=== PATIENT | female | born 1950 | race Caucasian/White ===

== ENCOUNTER 2018-02-14 21:29 | Emergency (ER) | payer MEDICARE, BC ==
[~2018-02-14] VITALS: Ht 165.1 cm; Wt 99.8 kg
--- NOTE | 2018-02-14 22:07 | RAD ---
Chest, PA and Lateral: Technique: PA and lateral views of the chest were obtained. History: Shortness of breath. Comparison: None. Findings: The heart and pulmonary vasculature appear within normal limits. Minimal left infrahilar airspace opacities likely atelectasis or infiltrate.. The pleural margins are clear. Moderate degenerative changes thoracic spine. Impression: Minimal left infrahilar airspace opacities likely atelectasis or infiltrate. Electronically signed by: Abelino Garcia MD (02/14/2018 10:04 PM) [email or web address]
[2018-02-14 22:12] LABS: BASO % 1 % (0-3); EOS # 0.5 x10^3/uL (0.0-0.7); EOS % 9 % (0-3); HEMATOCRIT 43.1 % (36.0-47.0); LYMPH # 1.5 x10^3/uL (1.0-4.8); LYMPH % 26 % (24-48); MEAN CORPUSCULAR HEMOGLOBIN 33 pg (25-35); MEAN CORPUSCULAR HGB CONC 35 g/dL (31-37); MEAN CORPUSCULAR VOLUME 95 fL (79-100); MONO # 0.8 x10^3/uL (0.0-1.1); MONO % 14 % (0-9); NEUT # 2.9 x10^3uL (1.8-7.7); NEUT % 50 % (31-73); PLATELET COUNT 356 x10^3/uL (140-400); RED BLOOD COUNT 4.55 x10^6/uL (3.50-5.40); RED CELL DISTRIBUTION WIDTH 13.7 % (11.5-14.5); WHITE BLOOD COUNT 5.9 x10^3/uL (4.0-11.0)
[2018-02-14 22:21] LABS: CALCIUM 9.3 mg/dL (8.5-10.1); CREATININE 0.9 mg/dL (0.6-1.0); GFR 62.1; POTASSIUM 4.3 mmol/L (3.5-5.1); PROTHROMBIN TIME PATIENT 31.8 SEC (11.7-14.0)
[2018-02-14 22:26] LABS: ALBUMIN 3.7 g/dL (3.4-5.0); ALBUMIN/GLOBULIN RATIO 0.9 (1.0-1.7); TOTAL BILIRUBIN 0.4 mg/dL (0.2-1.0); TOTAL PROTEIN 7.6 g/dL (6.4-8.2)
[2018-02-14] MEDS ORDERED: IPRATRPIUM/ALBUTEROL 0.5/2.5MG 3 ML NEBU. NEB ONE (22:30)
[2018-02-14] MEDS ORDERED: predniSONE 20 MG TABLET PO ONE (22:30)
[2018-02-14 22:45] VITALS: BP 126/62
[2018-02-14] MEDS ORDERED: PRED50TA PO (23:06)
[2018-02-14] MEDS ORDERED: DOXY100C2 PO (23:06)
--- NOTE | 2018-02-15 06:27 | PHYS DOC ---
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 Symptoms improved prior to arriving in the ED. Patient seen by PCP and started on amoxicillin reports no improvement. No fever chills, nausea vomiting or sweats. No leg pain or swelling. No history of CAD, CHF, DVT or PE. No other acute symptoms or complaints. [] Review of Systems Review of Systems Review symptoms as per history of present illness. All other review symptoms are negative. All other systems were reviewed and found to be within normal limits, except as documented in this note. Current Medications Current Medications Current Medications Medications (Trade) Dose Ordered Sig/Ford Start Time Stop Time Status Last Admin Dose Admin Albuterol/ Ipratropium (Duoneb) 3 ml 1X ONCE 02/14/18 22:30 02/14/18 22:31 DC 02/14/18 22:30 3 ML Prednisone (Prednisone) 60 mg 1X ONCE 02/14/18 22:30 02/14/18 22:31 DC 02/14/18 22:51 60 MG Allergies Allergies Allergies Coded Allergies Type Severity Reaction Last Updated Verified Sulfa (Sulfonamide Antibiotics) Allergy Intermediate 02/14/18 Yes sulfamethoxazole Allergy Mild 02/14/18 Yes trimethoprim Allergy Mild 02/14/18 Yes Physical Exam Physical Exam Constitutional: Well developed, well nourished, no acute distress, non-toxic appearance. [] HENT: Normocephalic, atraumatic, bilateral external ears normal, oropharynx moist, no oral exudates, nose normal. [] Eyes: PERRLA, EOMI, conjunctiva normal, no discharge. [] Neck: Normal range of motion, no tenderness, supple, no stridor. [] Cardiovascular:Heart rate regular rhythm, no murmur [] Lungs & Thorax: Respirations nonlabored, diminished musical breath sounds bilaterally with coarse rales at bases.[] Abdomen: Bowel sounds normal, soft, no tenderness, no masses, no pulsatile masses. [] Skin: Warm, dry, no erythema, no rash. [] Back: No tenderness. [] Extremities: No tenderness, no cyanosis, no clubbing, ROM intact, no edema. [] Neurologic: Alert and oriented X 3, normal motor function, normal sensory function, no focal deficits noted. [] Psychologic: Affect normal, judgement normal, mood normal. [] Current Patient Data Vital Signs Vital Signs Date Time Temp Pulse Resp B/P (MAP) Pulse Ox O2 Delivery O2 Flow Rate FiO2 02/14/18 22:45 82 18 126/62 (83) 96 Room Air 02/14/18 21:30 98.3 98.3 Lab Values Laboratory Tests Test 02/14/18 22:03 White Blood Count 5.9 x10^3/uL (4.0-11.0) Red Blood Count 4.55 x10^6/uL (3.50-5.40) Hemoglobin 15.0 g/dL (12.0-15.5) Hematocrit 43.1 % (36.0-47.0) Mean Corpuscular Volume 95 fL (79-100) Mean Corpuscular Hemoglobin 33 pg (25-35) Mean Corpuscular Hemoglobin Concent 35 g/dL (31-37) Red Cell Distribution Width 13.7 % (11.5-14.5) Platelet Count 356 x10^3/uL (140-400) Neutrophils (%) (Auto) 50 % (31-73) Lymphocytes (%) (Auto) 26 % (24-48) Monocytes (%) (Auto) 14 % (0-9) H Eosinophils (%) (Auto) 9 % (0-3) H Basophils (%) (Auto) 1 % (0-3) Neutrophils # (Auto) 2.9 x10^3uL (1.8-7.7) Lymphocytes # (Auto) 1.5 x10^3/uL (1.0-4.8) Monocytes # (Auto) 0.8 x10^3/uL (0.0-1.1) Eosinophils # (Auto) 0.5 x10^3/uL (0.0-0.7) Basophils # (Auto) 0.0 x10^3/uL (0.0-0.2) Prothrombin Time 31.8 SEC (11.7-14.0) H Prothrombin Time INR 3.2 (0.8-1.1) H Sodium Level 140 mmol/L (136-145) Potassium Level 4.3 mmol/L (3.5-5.1) Chloride Level 105 mmol/L (98-107) Carbon Dioxide Level 26 mmol/L (21-32) Anion Gap 9 (6-14) Blood Urea Nitrogen 11 mg/dL (7-20) Creatinine 0.9 mg/dL (0.6-1.0) Estimated GFR (Cockcroft-Gault) 62.1 BUN/Creatinine Ratio 12 (6-20) Glucose Level 109 mg/dL (70-99) H Calcium Level 9.3 mg/dL (8.5-10.1) Total Bilirubin 0.4 mg/dL (0.2-1.0) Aspartate Amino Transferase (AST) 89 U/L (15-37) H Alanine Aminotransferase (ALT) 131 U/L (14-59) H Alkaline Phosphatase 123 U/L (46-116) H Troponin I Quantitative < 0.017 ng/mL (0.000-0.055) HD-Ylg-C-Type Natriuretic Peptide 112 pg/mL (0-124) Total Protein 7.6 g/dL (6.4-8.2) Albumin 3.7 g/dL (3.4-5.0) Albumin/Globulin Ratio 0.9 (1.0-1.7) L Laboratory Tests 02/14/18 22:03 Laboratory Tests 02/14/18 22:03 EKG EKG [] Radiology/Procedures Radiology/Procedures [Chest x-ray: Left lower lobe atelectasis or infiltrate per radiology report] Course & Med Decision Making Course & Med Decision Making Pertinent Labs and Imaging studies reviewed. (See chart for details) [Steroids, breathing treatment given with significant improvement. Patient is afebrile with normal white blood cell count although, does have questionable infiltrate on exam. Will discontinue amoxicillin and start doxycycline, continue steroids and have follow-up with PCP for reevaluation. Return precautions reviewed. Patient verbalizes understanding and agreement discharge instructions prior to departure.] Dragon Disclaimer Dragon Disclaimer This electronic medical record was generated, in whole or in part, using a voice recognition dictation system. Departure Departure Impression: Primary Impression: Bronchospasm, acute Additional Impression: Acute bronchitis Disposition: HOME, SELF-CARE Condition: GOOD Patient Instructions: Bronchitis, [id number], Bronchospasm, [id number] Additional Instructions: Please take steroids as directed, discontinue amoxicillin and take newly prescribed antibiotics as directed. Continue home nebulized breathing treatments. Follow-up with your PCP reveals a recheck INR level. Return to the ED if new or worsening symptoms. Scripts Doxycycline Hyclate (DOXYCYCLINE HYCLATE) 100 Mg Capsule 1 CAP PO BID, #14 CAP Prov: SHIRLENE RODRIGUEZ DO 02/14/18 Prednisone (PREDNISONE) 50 Mg Tablet 1 TAB PO DAILY, #5 TAB Prov: SHIRLENE RODRIGUEZ DO 02/14/18 Problem Qualifiers SHIRLENE RODRIGUEZ DO Feb 15, 2018 06:27
== END 2018-02-14 23:00 | disposition home or self-care (01) ==
LOC: ER 21:29
DX: J20.9 Acute bronchitis, unspecified (principal); J45.909 Unspecified asthma, uncomplicated; I10 Essential (primary) hypertension; Z88.2 Allergy status to sulfonamides; Z88.8 Allergy status to other drugs, medicaments and biological substances
CPT/HCPCS: 36415; 71046; 80053; 83880; 84484; 85025; 85610; 94640; 99285; J7512; J7620